=== PATIENT | female | born 1970 | race Caucasian/White ===

== ENCOUNTER 2016-11-09 15:27 | Emergency (ER) | payer BC ==
[2016-11-09 17:10] LABS: BASOPHILS 0.2 % (0-2); EOSINOPHILS 1.5 % (0-7); HEMATOCRIT 40.6 % (36.0-48.0); HEMOGLOBIN 14.2 g/dL (12-16); IMMATURE GRANULOCYTES 0.2 % (0-5); MCH 32.3 pg (26.0-34.0); MCV 92.5 fL (80.0-100.0); MEAN PLATELET VOLUME 10.2 fL (7.4-10.4); MONOCYTES 6.5 % (2-11); NEUTROPHILS 61.6 % (40-80); PLATELET COUNT 197 10x3/uL (130-400); RBC 4.39 10x6/uL (4.00-5.40); RDW 12.9 % (11.5-14.5); WBC 9.8 10x3/uL (4.8-10.8)
[2016-11-09 17:16] LABS: APPEARANCE CLEAR (CLEAR); BILIRUBIN NEGATIVE (NEGATIVE); COLOR STRAW (YELLOW); GLUCOSE NEGATIVE (NEGATIVE); KETONE NEGATIVE (NEGATIVE); LEUKOCYTE ESTERASE NEGATIVE (NEGATIVE); NITRITE NEGATIVE (NEGATIVE); PROTEIN NEGATIVE (NEGATIVE); SPECIFIC GRAVITY 1.005 (1.005-1.020); UROBILINOGEN NORMAL (NORMAL)
[2016-11-09 17:17] LABS: RED CELLS - URINE 0-5 /hpf (0-5)
[2016-11-09 17:18] LABS: EPITHELIAL CELLS OCC /hpf (0-5)
[2016-11-09 17:20] LABS: HCG URINE NEGATIVE (NEGATIVE)
[2016-11-09 17:28] LABS: ALBUMIN 3.8 g/dL (3.4-5.0); ALKALINE PHOSPHATASE 57 U/L (46-116); ALT (SGPT) 17 U/L (10-68); AMYLASE - SERUM 65 U/L (25-115); BILIRUBIN - TOTAL 0.23 mg/dL (0.2-1.3); CALC OSMOLALITY 274 mosm/kg (275-300); CALCIUM 8.4 mg/dL (8.5-10.1); CARBON DIOXIDE 24.4 mmol/L (21.0-32.0); CHLORIDE - SERUM 105 mmol/L (98-107); CREATININE - SERUM 0.6 mg/dL (0.6-1.3); GLUCOSE 97 mg/dL (74-106); LIPASE 221 U/L (73-393); PROTEIN - SERUM 6.7 g/dL (6.4-8.2); SODIUM 138 mmol/L (136-145); UREA NITROGEN 11 mg/dL (7-18); eGFR NON AFRICAN AMERICAN > 90 mL/min (90-120)
== END 2016-11-09 18:55 | disposition home or self-care (01) ==
LOC: D.ER 15:27
PROVIDERS: Nurse Practitioner Family
DX: K80.50 Calculus of bile duct without cholangitis or cholecystitis without obstruction (principal); F17.200 Nicotine dependence, unspecified, uncomplicated; R51 Headache; I10 Essential (primary) hypertension

== ENCOUNTER 2016-11-14 17:45 | Emergency (ER) | payer BC ==
[2016-11-14 18:30] LABS: BASOPHILS 0.3 % (0-2); EOSINOPHILS 3.3 % (0-7); HEMATOCRIT 41.8 % (36.0-48.0); HEMOGLOBIN 14.5 g/dL (12-16); IMMATURE GRANULOCYTES 0.1 % (0-5); MCH 32.5 pg (26.0-34.0); MCHC 34.7 g/dL (31.0-37.0); MCV 93.7 fL (80.0-100.0); MEAN PLATELET VOLUME 10.2 fL (7.4-10.4); MONOCYTES 6.1 % (2-11); NEUTROPHILS 44.2 % (40-80); PLATELET COUNT 207 10x3/uL (130-400); RBC 4.46 10x6/uL (4.00-5.40); RDW 12.9 % (11.5-14.5); WBC 7.3 10x3/uL (4.8-10.8)
[2016-11-14 19:27] LABS: ALBUMIN 3.9 g/dL (3.4-5.0); ALKALINE PHOSPHATASE 58 U/L (46-116); ALT (SGPT) 18 U/L (10-68); CALC OSMOLALITY 279 mosm/kg (275-300); CALCIUM 9.1 mg/dL (8.5-10.1); CARBON DIOXIDE 23.9 mmol/L (21.0-32.0); CHLORIDE - SERUM 105 mmol/L (98-107); CREATININE - SERUM 0.6 mg/dL (0.6-1.3); GLUCOSE 97 mg/dL (74-106); POTASSIUM - SERUM 4.5 mmol/L (3.5-5.1); PROTEIN - SERUM 6.6 g/dL (6.4-8.2); SODIUM 140 mmol/L (136-145); UREA NITROGEN 15 mg/dL (7-18); eGFR NON AFRICAN AMERICAN > 90 mL/min (90-120)
[2016-11-14 20:08] LABS: APPEARANCE CLEAR (CLEAR); BILIRUBIN NEGATIVE (NEGATIVE); COLOR YELLOW (YELLOW); GLUCOSE NEGATIVE (NEGATIVE); KETONE NEGATIVE (NEGATIVE); LEUKOCYTE ESTERASE NEGATIVE (NEGATIVE); NITRITE NEGATIVE (NEGATIVE); PROTEIN NEGATIVE (NEGATIVE); SPECIFIC GRAVITY 1.015 (1.005-1.020); UROBILINOGEN NORMAL (NORMAL)
[2016-11-14 20:14] LABS: EPITHELIAL CELLS 0-5 /hpf (0-5); RED CELLS - URINE OCC /hpf (0-5); WHITE CELLS - URINE 0-5 /hpf (0-5)
[2016-11-14 20:15] LABS: BACTERIA MODERATE /hpf (NONE SEEN)
[2016-11-17] MEDS ORDERED: PROZAC20 MG PO (10:28)
[2016-11-17] MEDS ORDERED: TRAZODONE HCL50 MG PO (10:29)
[2016-11-17] MEDS ORDERED: PERCOCET 5-3251 TAB PO (10:29)
[2016-11-17] MEDS ORDERED: TOPROL XL25 MG PO (10:30)
[2016-11-17] MEDS ORDERED: BUSPAR 15 MG TA15 MG PO (10:30)
== END 2016-11-14 19:57 | disposition home or self-care (01) ==
LOC: D.ER 17:45
PROVIDERS: Family Medicine
DX: R10.2 Pelvic and perineal pain (principal)

== ENCOUNTER 2016-11-20 05:30 | Inpatient (IN) | payer BC ==
[2016-11-17 11:48] LABS: BASOPHILS 0.2 % (0-2); EOSINOPHILS 1.7 % (0-7); HEMOGLOBIN 15.1 g/dL (12-16); IMMATURE GRANULOCYTES 0.1 % (0-5); LYMPHOCYTES 28.5 % (15-50); MCH 32.3 pg (26.0-34.0); MCHC 34.3 g/dL (31.0-37.0); MEAN PLATELET VOLUME 10.1 fL (7.4-10.4); MONOCYTES 4.7 % (2-11); NEUTROPHILS 64.8 % (40-80); PLATELET COUNT 214 10x3/uL (130-400); RBC 4.68 10x6/uL (4.00-5.40); WBC 9.4 10x3/uL (4.8-10.8)
[2016-11-17 12:19] LABS: APPEARANCE CLEAR (CLEAR); BACTERIA MANY /hpf (NONE SEEN); BILIRUBIN NEGATIVE (NEGATIVE); COLOR YELLOW (YELLOW); EPITHELIAL CELLS 0-5 /hpf (0-5); GLUCOSE NEGATIVE (NEGATIVE); KETONE NEGATIVE (NEGATIVE); LEUKOCYTE ESTERASE TRACE (NEGATIVE); NITRITE NEGATIVE (NEGATIVE); PROTEIN NEGATIVE (NEGATIVE); RED CELLS - URINE 0-5 /hpf (0-5); UROBILINOGEN NORMAL (NORMAL); WHITE CELLS - URINE 0-5 /hpf (0-5)
[~2016-11-20] VITALS: Ht 167.6 cm; Wt 73.2 kg
[~2016-11-20 05:30] MED LIST: BUSPAR 15 MG TA15 MG PO; PERCOCET 5-3251 TAB PO; PROZAC20 MG PO; TOPROL XL25 MG PO; TRAZODONE HCL50 MG PO
[2016-11-20 06:21] VITALS: BP 104/55; BMI 26.0
--- NOTE | 2016-11-20 12:00 | NUR ---
Received from recovery room by bed, bedside report per OR nurse. Pt drowsy at this time but does respond to direct commands and is able to move herself from gurney to room bed. IV to left wrist patent and infusing per order. Large white bandage to bikini area, bandage is clean and dry at this time. Kitchen cath to bedside drain with 200ml dark but clear urine noted. SCD's on bilat per protocol and pump on. Ice pack placed over bandage to promote comfort. Pt denies nausea at this time and ask for ice chips or water to drink.
[2016-11-20 12:01] VITALS: BP 124/70
--- NOTE | 2016-11-20 12:30 | NUR ---
Morphine charter bus driver started per orders, pt states understanding of use. Pt ask that her sig other be called since he is no longer in outpt waiting area. Upon arrival to unit pt was on 2l/nc O2 due to pulse ox below 94%. At this time on room air pulse ox is 96%, NC removed per pt request. Rates her pain at 4/10 at this time. Light turned down per request, side rails up x 2 with call light and phone within reach.
--- NOTE | 2016-11-20 13:00 | NUR ---
Pt sig other brought to unit by volunteer and is at bedside. Pt denies any needs at this time, continue to rate pain at 4/10 and remains very drowsy.
--- NOTE | 2016-11-20 13:45 | NUR ---
Assistance provided to turn "more to right side" per her request. Pillow to back and between her knees. New ice pack to incision site. Rates pain at 4/10 and continues to be drowsy, falling asleep while talking to sig other. Kitchen cath with 300ml clear urine noted. fresh ice water provided, denies nausea but also denies broth or jello at this time. side rails up x 2 with call light and phone with in her reach. Sig other at bedside.
--- NOTE | 2016-11-20 15:00 | NUR ---
Pt resting on her right side with eyes closed and resp even, no distress noted. Pt left undisturbed with sig other at bedside.
--- NOTE | 2016-11-20 17:01 | NUR ---
Called to room, assistance given in changing positions, pt able to move herself from right side on to her back with little assistance, head of bed elevated per request. Provided with warm wet wash cloth to wash face. Large ice water and lemon [place] soda per request. New ice pack also provided. willett cath with 300ml clear urine noted. rates pain at 4/10 and states she is starting to feel better.
--- NOTE | 2016-11-20 17:50 | NUR ---
DR RAMOS CALLS UNIT WITH NEW ORDERS FOR WHEN HOME TEACHING GRADES 7 AND 8 TEACHER AND SERRANO CAN BE D/C AND MAY ADVANCE DIET TOLERATED.
[2016-11-20 18:00] VITALS: BP 119/61
--- NOTE | 2016-11-20 18:20 | NUR ---
New ice pack per request to incision site, rates her pain 3-4/10 and states that she is feeling better and able to rest more. SCD's removed per request and pt is moving by herself in bed, will replace in 30-45 minutes. IV pump cleared and willett cath emptied with total output of 1100ml. denies any needs at this time.
--- NOTE | 2016-11-20 19:21 | NUR ---
RESUMING CARE OF PT FROM. Agustín LUIS RN. THIS RN TO BEDSIDE. PT RESTING WITH EYES CLOSED AT THIS TIME. S/O AT BEDSIDE READING, REQUESTS TO LET PT REST AT THIS TIME. RESPIRATIONS REGULAR AND UNLABORED, NO S/S OF DISTRESS NOTED. WILL CONT TO MONITOR AND ASSIST PRN. BED IN LOW POSITION WITH UPPER SIDE RAILS RAISED X2. CL AND PHONE WITHIN REACH.
[2016-11-20 20:06] VITALS: BP 106/55
--- NOTE | 2016-11-20 20:06 | NUR ---
RN TO BEDSIDE. PT SITTING UP IN BED CONVERSING WITH VISITORS. SHIFT ASSESSMENT COMPLETED. VSS. PT STATES THAT SHE IS PASSING FLATUS. DRSG TO ABD INCISION CLEAN, DRY, AND INTACT WITH NO DRAINAGE NOTED. 150 MLS, CLEAR LIGHT YELLOW URINE PRESENT IN SERRANO BAG. BOWEL SOUNDS PRESENT AND ACTIVE X4. SERRANO REMOVED PER ORDERS. PAIN 5/10, ABD ACHING AND SORENESS. PERCOCET GIVEN PER ORDERS. PIV SL, NO MORPHINE REMAINING IN COLOR PASTE MIXER VIAL. S/O REMAINS AT BEDSIDE FOR ASSESSMENT. PLAN OF CARE DISCUSSED WITH BOTH, VERBALIZE UNDERSTANDING AND DENY QUESTIONS. NO VAG BLEEDING OR DISCHARGE NOTED. BED IN LOW POSITION WTIH UPPER SIDE RAILS RAISED X2. CL AND PHONE WITHIN REACH. INSTRUCTED ON USE OF CL FOR ASSISTANCE OOB, VERBALIZES UNDERSTANDING.
--- NOTE | 2016-11-20 20:15 | NUR ---
PT UP AMBULATING WITH S/O IN THE SNEED. STEADY GAIT NOTED.
--- NOTE | 2016-11-20 20:50 | NUR ---
PT BACK TO BED FOLLOWING AMBULATION IN SNEED WITH S/O. PAIN REASSESSMENT COMPLETED. PAIN NOW 04/21. REFUSES SCD'S AT THIS TIME. VISITING WITH S/O AND OTHER FAMILY MEMBERS IN THE ROOM AT BEDSIDE. ICE WATER, CRACKERS, AND ICE CHIPS PROVIDED PER REQUEST. NEW ICE PACK TO INCISION BY PT. DENIES ADDITIONAL NEEDS AT THIS TIME. SERRANO CATH D/C'D. INSTRUCTED ON NEED TO MEASURE VOIDS X3 FOLLOWING CATH REMOVAL, VERBALIZED UNDERSTANDING. BED IN LOW POSITION WITH UPPER SIDE RAILS RAISED X2. CL AND PHONE WITHIN REACH. S/O REMAINS AT BEDSIDE AND SUPPORTIVE OF PT. WILL CONT TO MONITOR AND ASSIST PRN.
--- NOTE | 2016-11-20 22:12 | NUR ---
RN TO BEDSIDE. SCHEDULED TORADOL GIVEN PER ORDERS. PAIN 5/10 "IT'S JUST SORE, I FEEL LIKE I'VE BEEN PUNCHED IN THE STOMACH." DENIES ADDITIONAL NEEDS AT THIS TIME. NEW ICE PACK PROVIDE. PT UP TO VOID WITH 100 MLS, CLEAR LIGHT YELLOW URINE IN HAT NOTED. PT BACK TO BED. S/O REMAINS AT BEDSIDE, SUPPORTIVE AND ATTENTATIVE TO PT. BED IN LOW POSITION WITH UPPER SIDE RAILS RAISED X2. CL AND PHONE WITHIN REACH. WILL CONT TO MONITOR AND ASSIST PRN. LINEN'S PROVIDED TO S/O.
--- NOTE | 2016-11-20 22:51 | NUR ---
RN TO BEDSIDE FOR PAIN REASSESSMENT. PT RESTING WITH EYES CLOSED AT THIS TIME. RESPIRATIONS REGULAR AND UNLABORED, NO S/S OF DISTRESS NOTED. S/O AT BEDSIDE READING. BED IN LOW POSITION WITH UPPER SIDE RAILS RAISED X2. CL AND PHONE WITHIN REACH. WILL CONT TO MONITOR AND ASSIST PRN.
--- NOTE | 2016-11-21 00:32 | NUR ---
RN TO BEDSIDE FOR ROUNDS. PT GRIMACING. PAIN 5/10, PT REQUESTS PAIN MEDICATION. STATES THAT ABD IS SORE AND STINGING. PERCOCET GIVEN PER ORDER. ICE PACK PLACED ON INCISION SITE. VSS. PT DENIES ADDITIONAL NEEDS AT THIS TIME. S/O RESTING AT BEDSIDE. BED IN LOW POSITION WITH UPPER SIDE RAILS RAISED X2. CL AND PHONE WITHIN REACH. PT POSITIONED SELF ON RIGHT SIDE. ENCOURAGED DEEP BREATHING, VERBALIZES UNDERSTANDING AND RELIEF OF PAIN. WILL CONT TO MONITOR AND ASSIST PRN.
--- NOTE | 2016-11-21 01:15 | NUR ---
PAIN REASSESSMENT COMPLETE. PT RESTING WITH EYES CLOSED. RESPIRATIONS REGULAR AND UNLABORED, NO S/S OF DISTRESS NOTED. S/O RESTING AT BEDSIDE. BED IN LOW POSITION WITH UPPER SIDE RAILS RAISED X2. CL AND PHONE WITHIN REACH. WILL CONT TO MONITOR AND ASSIST PRN.
--- NOTE | 2016-11-21 02:10 | NUR ---
RN TO BEDSIDE FOR ROUNDS PT. RESTING WITH EYES CLOSED. RESPIRATIONS REGULAR AND UNLABORED. NO S/S OF DISTRESS NOTED. S/O CONTINUES TO REST AT BEDSIDE. BED IN LOW POSITION WITH UPPER SIDE RAILS RAISED X2. CL AND PHONE WITHIN REACH. WILL CONT TO MONITOR AND ASSIST PRN.
--- NOTE | 2016-11-21 04:26 | NUR ---
RN TO BEDSIDE. PT SITTING IN HIGH FOWLERS POSITION COUGHING AT THIS TIME. PAIN 7/, TORADOL GIVEN PER ORDER AND PERCOCET PER PT REQUEST. STATES THAT ABD IS SORE AND TENDER. UP TO VOID, VOIDED 300 CLEAR LIGHT YELLOW URINE. BACK TO BED. VSS. S/O REMAINS AT BEDSIDE RESTING. BED IN LOW POSITION WITH UPPER SIDE RAILS RAISED X2. CL AND PHONE WITHIN REACH. WILL CONT TO MONITOR AND ASSIST PRN.
[2016-11-21 04:28] VITALS: BP 107/55
[2016-11-21 04:48] VITALS: BP 107/55; Ht 167.6 cm; Wt 73.2 kg
--- NOTE | 2016-11-21 05:00 | NUR ---
PAIN REASSESSMENT COMPLETED. PT IN HIGH FOWLERS POSITION WATCHING TV. PAIN 05/19. DENIES ADDITIONAL NEEDS AT THIS TIME. STATES THAT SHE ALSO HAS PASSED MORE FLATUS. S/O REMAINS AT BEDSIDE RESTING. BED IN LOW POSITION WITH UPPER SIDE RAILS RAISED X2. CL AND PHONE WITHIN REACH. WILL CONT TO MONITOR AND ASSIST PRN.
--- NOTE | 2016-11-21 06:06 | NUR ---
RN TO BEDSIDE FOR ROUNDS. PT RESTING WITH EYES CLOSED. RESPIRATIONS REGULAR AND UNLABORED, NO S/S OF DISTRESS NOTED. S/O RESTING AT BEDSIDE. BED IN LOW POSITION WITH UPPER SIDE RAILS X2. CL AND PHONE WITHIN REACH.
[2016-11-21 07:10] VITALS: BP 96/55
--- NOTE | 2016-11-21 07:10 | NUR ---
PT IS POST OP BSO. SHE IS DOING WELL THIS AM. OFFERS NO COMPLAINTS. HER PAIN IS ABOUT A 6. SHE DOES NOT REQUEST PAIN MED AT THIS TIME. HER IS AT BEDSIDE. BED IS LOW, SIDE RAILS UP X 2 AND CALL LIGHT IN REACH. GEN- AWAKE AND ALERT. LUNGS- CLEAR. HEART- RRR. ABD- SOFT, WITH TENDERNESS. SHE HAS A LOW TRANSVERSE INCISION WITH A PRIMAPORE DRESSING INTACT. CLEAN , DRY AND INTACT. SHE HAS VOIDED X 2. SHE HAS BEEN AMBULATING IN HALLWAY. SHE HAS A SALINE LOCK NOTED TO LEFT WRIST.
--- NOTE | 2016-11-21 07:40 | NUR ---
DR RAMOS IS HERE TO SEE PT. WILL REVIEW NEW ORDERS.
--- NOTE | 2016-11-21 08:00 | NUR ---
PT IS UP AMBULATING IN HALLWAY WITH HER . TOLERATING WELL.
--- NOTE | 2016-11-21 08:31 | NUR ---
PT REQUESTED ORAL PAIN MED. PAIN IS ABOUT A 6. ORAL MED GIVEN.
--- NOTE | 2016-11-21 10:57 | NUR ---
PT REQUESTED SOMETHING FOR HER STOMACH. FEEL LIKE SHE IS GOING TO HAVE INDIGESTION. REGLAN IS GIVEN AND TORADOL FOR PAIN. NO OTHER COMPLAINTS.
--- NOTE | 2016-11-21 13:00 | NUR ---
PT IS AMBULATING IN HALLWAY WITH HER . TOLERATING WELL.
--- NOTE | 2016-11-21 13:26 | NUR ---
PT IS UP AND IS IN SHOWER. SHOWER CHAIR IN SHOWER.
--- NOTE | 2016-11-21 14:14 | NUR ---
PT AND BELONGINGS WERE TRANSFERRED TO 1214. PT WALKED OVER AND TOLERATED WELL.
--- NOTE | 2016-11-21 16:40 | NUR ---
PT IS UP AMBULATING IN THE HALLWAY WITH HER . SHE REQUEST HER PAIN MED. IV CHECKED FOR PATENCY. TORADOL 15 MG GIVEN IV DILUTED IN 8 ML OF NS. AND PERCOCET 5/325 GIVEN ORALLY. PT STATES IT STILL BURNED GOING IN.
--- NOTE | 2016-11-21 17:15 | NUR ---
DR RAMOS WAS HERE TO SEE PT. HE IS GOING TO DISCHARGE PT. HE DID DISCUSS DISCHARGE INSTRUCTIONS WITH PT.
--- NOTE | 2016-11-21 17:20 | OP ---
PATIENT NAME: DARNELL ROMERO MEDICAL RECORD: [id number] :74 LOCATION:[facility]1214 ADMISSION DATE:11/20/16 SURGEON: JEAN RAMOS MD DATE OF OPERATION: 11/20/2016 PREOPERATIVE DIAGNOSIS: Chronic pelvic pain. POSTOPERATIVE DIAGNOSES: 1. Chronic pelvic pain. 2. Pelvic adhesive disease. 3. Left ovarian cyst. PROCEDURES: 1. Diagnostic laparoscopy. 2. Exploratory laparotomy. 3. Lysis of adhesions. 4. Bilateral salpingo-oophorectomy. SURGEON: Jean Ramos MD. AIRCRAFT LIFE SUPPORT FITTER: Jaqui Ortega. ANESTHESIOLOGIST: Dr. Claire. ANESTHESIA: General anesthetic with endotracheal intubation. FINDINGS: Dense pelvic adhesions throughout the lower pelvis. Right ovary is unremarkable. Left ovary and tube with indurated mass associated with it and a 2-cm simple cyst. SPECIMENS REMOVED: Right and left ovary. SPECIMEN DISPOSITION: Pathology. ESTIMATED BLOOD LOSS: Less than or equal to 150 cc. FLUIDS: 1500 cc lactated Ringer's. URINE OUTPUT: 600 cc of clear urine. COMPLICATIONS: None. DRAINS: Kitchen to gravity. INDICATIONS: The patient is a 46-year-old female with chronic pelvic pain. The patient has been consented for diagnostic laparoscopy and indicated procedure. The patient had a strong desire for removal of both ovaries. Risks and benefits as well as limitations have been described. The patient acknowledged all limitations and risks. DESCRIPTION OF PROCEDURE: After informed consent was assured, the patient was taken to the operating room, anesthesia was obtained without difficulty. The patient is now prepped and draped in the usual sterile fashion. The Kitchen catheter has been inserted. An incision was made at the umbilicus to accommodate a 5-mm bladeless trocar, which was inserted without difficulty. OPERATIVE REPORT [id number] DARNELL ROMERO Examination of the pelvis with the above findings. The patient now has primary trocar removed. An incision was made over the old Pfannenstiel scar. This was carried down to the underlying layer of the fascia, which was opened in the midline and extended laterally. Rectus bellies was dissected free superiorly and inferiorly and then in the midline. The peritoneum was entered sharply and the peritoneal opening was extended. Using Metzenbaum scissors with the tissue and gentle retraction, adhesions are taken down off the omentum from the abdominal wall and the peritoneum. The right ovary was exposed. Infundibulopelvic lip was doubly clamped with Viktoriya clamps and removed. A tie on a pass and then a [id number]-wig stitch was placed to obtain hemostasis at the right vascular pedicle. Dissection continued on the left. The omentum and peritoneum reflection is dissected free of the left ovary and tube. Once it is mobilized, it is elevated with [place] clamps and again, 2 Viktoriya clamps were placed over the infundibulopelvic clamp. The ovary is now removed sharply. A free tie and [id number] stitch was applied to obtain hemostasis on the left. The pelvis was copiously irrigated, irrigant removed and inspection of the vascular pedicles revealed adequate hemostasis. Rectus bellies were inspected and found to be hemostatic. The fascia was now closed with #1 Vicryl. The subcutaneous tissues were inspected. Bleeding vessels were cauterized and the skin reapproximated with 4-0 Monocryl on a PS-2. Steri-Strips were applied. TRANSINT:[id number] Voice Confirmation ID: [id number] DOCUMENT ID: [id number] JEAN RAMOS MD at 1720 CC: [id number] DICTATION DATE: 11/20/16 1100 SPLITTING MACHINE TENDER: 11/20/16 1939 ADM IN [facility] [address] [place] [address]
--- NOTE | 2016-11-21 17:24 | NUR ---
SALINE LOCK REMOVED. TIP INTACT. DISCHARGE INSTRUCTIONS GIVEN TO PT. PT WAS TAKEN TO FRONT DOOR IN WHEELCHAIR.
--- NOTE | 2016-11-25 06:13 | DS ---
PATIENT:DARNELL ROMERO :74 MEDICAL RECORD: [id number] DISCHARGE SUMMARY ADMISSION DATE: 11/20/16 DISCHARGE DATE: 11/21/16 ADMISSION DATE: 11/20/2016 DISCHARGE DATE: 11/21/2016 ADMISSION DIAGNOSIS: Pelvic pain. DISCHARGE DIAGNOSES: 1. Pelvic pain. 2. Dense pelvic adhesive disease. PROCEDURES PERFORMED WHILE HOSPITALIZED: 1. Diagnostic laparoscopy. 2. Exploratory laparotomy. 3. Lysis of adhesions. 4. Bilateral salpingo-oophorectomy. HISTORY OF PRESENT ILLNESS AND REASON FOR HOSPITALIZATION: Please see the history and physical in the chart. SUMMARY OF HOSPITALIZATION: The patient was admitted to the hospital and underwent a diagnostic laparoscopy and subsequent exploratory laparotomy and BSO. The patient has done well, and at the time of discharge is tolerating a regular diet, has adequate pain control on oral medications and is ambulating without difficulty. The patient is voiding freely and has flatus. DISCHARGE MEDICATIONS: Will include Percocet and Motrin. The Percocet will be 5 mg, dispensing 25 with instructions to take 1-2 p.o. q.4-6 hours p.r.n. for pain. The Motrin is 800 mg, dispensing 30, with instructions to take 1 p.o. q.8 hours for 2 days followed by q.8 hours p.r.n. for mild to moderate pain. Followup has already been arranged in the clinic in 2 weeks, and precautions have been reviewed. TRANSINT:[id number] Voice Confirmation ID: [id number] DOCUMENT ID: [id number] BAKARI RAMOS MD at 0613 CC: [id number] DICTATION DATE: 11/21/16 172 CANE FLUME FEEDING MACHINE OPERATOR: 11/22/16 0216 DIS IN 11/21/16 [facility] [address] [place] [address]
== END 2016-11-21 17:43 | disposition home or self-care (01) | DRG 743 ==
LOC: D.OPS 05:30 → D.PAN 07:30 → D.OPS 07:30 → D.LD 11:45 → D.OPS 11:46 → D.LD 11:47 → D.WS 11-21 14:11
PROVIDERS: ADMIT Obstetrics & Gynecology
PROC: 0UT70ZZ Resection of Bilateral Fallopian Tubes, Open Approach (ICD-10-PCS; principal; 2016-11-20 07:30)
PROC: 0UT20ZZ Resection of Bilateral Ovaries, Open Approach (ICD-10-PCS; 2016-11-20 07:30)
PROC: 0DNW0ZZ Release Peritoneum, Open Approach (ICD-10-PCS; 2016-11-20 07:30)
DX: N73.6 Female pelvic peritoneal adhesions (postinfective) (principal); N83.202 Unspecified ovarian cyst, left side; R10.2 Pelvic and perineal pain